=== PATIENT | male | born 1955 | race Caucasian/White ===

== ENCOUNTER 2017-03-10 12:23 | Emergency (ER) | payer OTHER ==
[~2017-03-10] VITALS: Ht 172.7 cm; Wt 77.1 kg
[~2017-03-10 12:23] MED LIST: ATENOLOL 50 MG50 M1 PO; CARVEDILOL12.5 MG PO; CATAPRES0.2 MG PO; CATAPRES0.3 MG PO; CLONAZEPAM 1 MG1 M1 NG; CLONAZEPAM 1 MG1 M1 OR; CLONAZEPAM 1 MG1 M1 PO; CLONAZEPAM PO; CLONAZEPAM2 MG PO; CLONIDINE HCL0.2 M2 GT; CLONIDINE HCL0.3 M2 PO; CLONIDINE HCL0.3 M3 PO; HYDROCODONE-AP1 EAC6 PO; MS CONTIN 60 MG60 M1 GT; MS CONTIN60 MG PO; NEURONTIN600 MG PO; NORVASC10 MG PO; OXYCODONE HCL 55 MG PO; OXYCONTIN10 M1 PO; PERCOCET 10-321 EACH PO; PROTONIX40 M2 PO; PROTONIX40 M4 PO; [UNRECOGNIZED DRUG - OTHER]
[2017-03-10] MEDS ORDERED: IBUPROFEN 600600 M1 PO (12:44)
== END 2017-03-10 12:59 | disposition home or self-care (01) ==
LOC: ER 12:23
DX: G89.29 Other chronic pain (principal); G43.909 Migraine, unspecified, not intractable, without status migrainosus; I10 Essential (primary) hypertension; K21.9 Gastro-esophageal reflux disease without esophagitis; F17.210 Nicotine dependence, cigarettes, uncomplicated; Z88.1 Allergy status to other antibiotic agents; Z88.8 Allergy status to other drugs, medicaments and biological substances; Z88.0 Allergy status to penicillin